=== PATIENT | male | born 1945 | race Caucasian/White ===

== ENCOUNTER 2025-03-14 16:54 | Emergency (ER) | payer MEDICARE, SELFPAY ==
[2025-03-14 16:58] VITALS: BP 151/90; PULSE 78; RESP 18; TEMP 36.7; O2SAT 98
--- NOTE | 2025-03-14 17:37 | W.ED.GENAD ---
Discharge Plan Disposition Patient Disposition: Home Condition: Stable Discharge Details Clinical Impression: Surgical wound dehiscence Primary Care Provider: Kelly,Local ED Provider: Hamilton Navarrete Home Meds and New Rx's Prescriptions: New mupirocin [Centany] 2 % ointment 1 applic topical BID Qty: 15 0RF No Action losartan [Cozaar] 25 mg tablet 25 mg PO DAILY hydrochlorothiazide 25 mg tablet 25 mg PO DAILY amlodipine-atorvastatin 10-20 mg tablet 1 tab PO DAILY Discharge Instructions Instructions: Wound Dehiscence, Mupirocin Additional Instructions: You were seen in the emergency department for your surgical wound dehiscence of your left forearm, you need to contact your surgeon send in the picture of your wound, I have sent a prescription for your topical antibiotic to apply and keep covered, you can shower as normal with the Steri-Strips I placed on, they will likely remove them when they evaluate you at your surgical office, return to emergency department for any increasing redness, red streaking up the arm, fever, drainage of pus from the area. Discharge Data Discharge Date/Time-TO BE ENTERED AT DEPARTURE: 03/14/25 17:56 HPI General Date/Time Provider Initiated Documentation: 03/14/25 17:05. HPI Narrative: 79 year-old male presents to ED today by POV/ambulating with his with a chief complaint of wound dehiscence of recent skin cancer removal by wide exision to L forearm with onset of a small part of the laceration yesterday, now fully today. Quality described as not painful, no radiation to active bleeding, drainage of pus, nausea, redness spreading outward, red streaking up the arm. Severity is described as mild. Palliating factors include nothing specific attempted. Provoking factors include was just drying from the shower when the wound came apart. Events leading up to the incident/Associated Symptoms: Patients' excision was performed in [place] where they are full-time residents, returning there Saturday. Patient not anticoagulated. Related Data Home Medications ?Medication ?Instructions ?Recorded ?Confirmed amlodipine 10 mg-atorvastatin 20 1 tab PO DAILY 03/14/25 03/14/25 mg tablet hydrochlorothiazide 25 mg tablet 25 mg PO DAILY 03/14/25 03/14/25 losartan 25 mg tablet (Cozaar) 25 mg PO DAILY 03/14/25 03/14/25 mupirocin 2 % topical ointment 1 applic topical BID #15 grams 03/14/25 (Centany) Previous Rx's ?Medication ?Instructions ?Recorded mupirocin 2 % topical ointment 1 applic topical BID #15 grams 03/14/25 (Centany) Allergies Allergy/AdvReac Type Severity Reaction Status Date / Time No Known Allergies Allergy Unverified 03/14/25 17:02 General Stated Complaint: SurgicalRecheck SANDOVAL: 3 Review of Systems All systems reviewed & are unremarkable except as noted in HPI and below Exam Narrative Exam Narrative: GENERAL APPEARANCE: Well-nourished, non-toxic, awake and alert, atraumatic, no acute distress. SKIN: Warm, pink, dry, wound dehiscence to surgical excision to left dorsal forearm, no purulent drainage, no spreading erythema or lymphadenitis, neurovascular intact distal HEAD: Normocephalic, atraumatic, normal hair distribution for gender/age. EYES: Normal conjunctiva, no exudates on lids/lashes. ENT: Nares patent, no circumoral cyanosis, no facial swelling NECK: Supple, trachea midline, painless cervical ROM. LUNGS/CHEST: Non-labored respirations, normal A/P diameter, symmetrical expansion, no chest wall deformity HEART (CV/PV): No peripheral edema, no JVD. ABDOMEN: Soft, non-distended, no guarding. MSK: Normal ROM, no swelling/deformity to bilateral UEs or LEs, moving all extremities without weakness, no cyanosis, spine midline without tenderness, normal curvature. NEURO: Mental Status AAOx4 - alert to person, place, time, events No facial droop, no forehead involvement. Motor: No focal weakness - strength 5/5 in bilateral UEs and LEs, proximal and distal, symmetric. Sensory: sensation intact to light touch globally. Gait normal: patient ambulated without ataxia into ED room. PSYCH: euthymic, cooperative, pleasant, appropriate speech Course Vital Signs Vital signs: Vital Signs Temperature 36.7 C 03/14/25 16:58 Pulse 78 03/14/25 16:58 Respiratory Rate 18 03/14/25 16:58 Blood Pressure 151/90 H 03/14/25 16:58 Pulse Oximetry 98 03/14/25 16:58 Temperature 36.7 C 03/14/25 16:58 Temperature Source Oral 03/14/25 16:58 Pulse 78 03/14/25 16:58 Respiratory Rate 18 03/14/25 16:58 Blood Pressure 151/90 H 03/14/25 16:58 Pulse Oximetry 98 03/14/25 16:58 Oxygen Delivery Method Room Air 03/14/25 16:58 Oxygen Flow Rate 0 03/14/25 16:58 Pain Level 0 03/14/25 16:58 Medical Decision Making This dictation utilizes [id number] dictation software and may contain unedited grammatical errors. 79 year-old male presents to ED today by POV/ambulating with his with a chief complaint of wound dehiscence of recent skin cancer removal by wide exision to L forearm with onset of a small part of the laceration yesterday, now fully today. Quality described as not painful, no radiation to active bleeding, drainage of pus, nausea, redness spreading outward, red streaking up the arm. Severity is described as mild. Palliating factors include nothing specific attempted. Provoking factors include was just drying from the shower when the wound came apart. Events leading up to the incident/Associated Symptoms: Patients' excision was performed in [place] where they are full-time residents, returning there Saturday. Patients' medical history: skin cancer. Family and social history: noncontributory. Pertinent exam findings / vital signs include wound dehiscence to surgical excision to left dorsal forearm, no purulent drainage, no spreading erythema or lymphadenitis, neurovascular intact distal. Differential / pathologies of concern include wound dehiscence. Diagnostic studies of: -None. Interventions of: -Steri-Stripped for temporary loose approximation. ED Course/Assessment/Plan: 79-year-old male had a wide excision of a skin cancer on his left forearm with complete wound dehiscence this morning, he can follow-up with his surgeon who performed the procedure when they return back to [place] on Saturday, it was Steri-Stripped for loose approximation, counseled that he would need to return to a medical facility emergently for any signs of infection. Findings not consistent with active infection. Disposition of surgical wound dehiscence. Patient verbalized understanding of the plan and return to ED criteria and engaged in shared decision making. Medical Records Medical records reviewed: Yes I reviewed the patient's medical records. PFSH All Active Problems (Updated 03/14/25 @ 17:44 by EVERARDO Garcia) Surgical wound dehiscence (Acute) Social History Smoking/Tobacco Use Status: Never Smoking risk assessment performed?: Yes Alcohol Intake: current Alcohol Intake frequency: 0-2 drinks per day Drug use: Never Substance use type: does not use Housing: house Do you feel safe at home: Yes Do you feel safe in your relationship?: Yes
[2025-03-14 17:48] VITALS: BP 151/90; PULSE 78; RESP 18; TEMP 36.7; O2SAT 98
[2025-03-14 17:54] VITALS: BP 153/88; PULSE 78; RESP 18; O2SAT 96
== END 2025-03-14 17:56 | disposition home or self-care (01) ==
PROVIDERS: Emergency Provider Physician Assistant
DX: T81.31XA Disruption of external operation (surgical) wound, not elsewhere classified, initial encounter (principal)
CPT/HCPCS: 99283 ×2